=== PATIENT | male | born 1970 | race Caucasian/White ===

== ENCOUNTER 2016-10-19 23:28 | Emergency (ER) | payer BC ==
[2016-10-20] MEDS ORDERED: Clotrimazole 1% CREAM* 30 GM TOPICAL ONE (00:04)
--- NOTE | 2016-10-20 00:08 | ED ---
Skin Complaint - HPI Summary HPI Summary: 46M presents with rash on waist that spread to legs starting on Tuesday. He states exercising a lot outside when rash started. He developed a red itchy rash in lower abdominal/waist area and into right thigh. He tried OTC caladryl without any relief. He denies any fever. He states the area has a burning sensation to it. He denies any new products or contact with anything new. 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 Infectious Disease History: No Infectious Disease History: Denies: Traveled Outside the [place] in Last 30 Days - Family History Known Family History: Positive: Cardiac Disease - Social History Alcohol Use: Weekly Alcohol Amount: 1-2beers a week Substance Use Type: Reports: None Smoking Status (MU): Never Smoked Tobacco Review of Systems Negative: Fever Negative: Chest Pain Negative: Shortness Of Breath Positive: Rash All Other Systems Reviewed And Are Negative: Yes Physical Exam Triage Information Reviewed: Yes Vital Signs On Initial Exam: Initial Vitals Temp Pulse Resp BP Pulse Ox 98 F 75 16 144/98 97 10/19/16 23:29 10/19/16 23:29 10/19/16 23:29 10/19/16 23:29 10/19/16 23:29 Vital Signs Reviewed: Yes Appearance: Positive: Well-Appearing Skin: Positive: Other - erythematous rash with scaling on lower abdomen along waist line and right thigh, blanching to touch Head/Face: Positive: Normal Head/Face Inspection Eyes: Positive: Normal, Conjunctiva Clear Respiratory/Lung Sounds: Positive: Clear to Auscultation, Breath Sounds Present Cardiovascular: Positive: Normal, RRR Diagnostics - Vital Signs Vital Signs Temp Pulse Resp BP Pulse Ox 10/19/16 23:50 98.7 F 69 16 140/89 97 10/19/16 23:29 98 F 75 16 144/98 97 - Laboratory Lab Statement: Any lab studies that have been ordered have been reviewed, and results considered in the medical decision making process. Course/Dx - Course Course Of Treatment: 46M presents with rash tuesday s/p running. denies contact with anything. rash is located along pants line. has since spread to thigh. area not warm to touch, erythema present with scaling. will treat as tinea. will use clomitrazole twice a day. told will take some time to get better. patient understands and agrees with plan - Differential Diagnoses - Skin Complaint Differential Diagnoses: Cellulitis, Contact Dermatitis, Tinea - Diagnoses Provider Diagnoses: Tinea corporis Discharge - Discharge Plan Condition: Good Disposition: HOME Patient Education Materials: Skin Yeast Infection (ED) Referrals: Audi IZQUIERDO,Didier Carlos [Primary Care Provider] - Additional Instructions: Apply cream to area twice a day until resolves Keep area dry Can apply bath powder to area Return to ED if develop fever or any new or worsening symptoms
[2016-10-20 01:12] VITALS: BP 125/74
== END 2016-10-20 01:13 | disposition home or self-care (01) ==
LOC: ED 23:28
DX: B35.4 Tinea corporis (principal); I10 Essential (primary) hypertension
CPT/HCPCS: 99282

== ENCOUNTER 2016-11-03 17:07 | Emergency (ER) | payer BC ==
[2016-11-03 17:41] VITALS: BP 132/85
[2016-11-03] MEDS ORDERED: Ibuprofen TAB* 800 MG PO ONE (18:26)
--- NOTE | 2016-11-03 18:33 | ED ---
Lower Extremity - HPI Summary HPI Summary: Pt here w/ Rt ankle pain, swelling and injury 2 x today. Earlier today, rolled his ankle while walking on uneven ground. He reports this as a mild injury which he "walked off". Later in the day, he went for his 2 mile run he does QOD and at the end of the run, rolled this same ankle much more severely. He is able to bear weight but is quite painful. Denies numbness, tingling, weakness. Reports he showered after his run before coming here. H/o B/L ankle injuries, including a "minor" fracture of his Rt ankle, requiring an aircast and crutches for a few weeks. Has not taken anything prior to arrival for pain/swelling. - History of Current Complaint Chief Complaint: EDExtremityLower Stated Complaint: RT ANKLE INJURY Time Seen by Provider: 11/03/16 18:16 Hx Obtained From: Patient Pain Intensity: 5 - Allergies/Home Medications Allergies/Adverse Reactions: Allergies Allergy/AdvReac Type Severity Reaction Status Date / Time No Known Allergies Allergy Verified 10/20/16 01:08 PMH/Surg Hx/FS Hx/Imm Hx Previously Healthy: Yes Endocrine/Hematology History: Denies: Hx Anticoagulant Therapy, Hx Blood Disorders, Hx Diabetes Cardiovascular History: Reports: Hx Hypertension - on meds recently Denies: Hx Pacemaker/ICD Respiratory History: Denies: Hx Asthma History: Denies: Hx Renal Disease Musculoskeletal History: Reports: Other Musculoskeletal History - B/L ankle sprains Sensory History: Denies: Hx Hearing Aid Psychiatric History: Denies: Hx Panic Disorder - Surgical History Surgery Procedure, Year, and Place: 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 Infectious Disease History: No Infectious Disease History: Denies: Traveled Outside the [place] in Last 30 Days - Family History Known Family History: Positive: Cardiac Disease - Social History Occupation: Employed Full-time - [employer] Lives: Alone Alcohol Use: Weekly Alcohol Amount: 1-2beers a week Hx Substance Use: No Substance Use Type: Reports: None Hx Tobacco Use: No Smoking Status (MU): Never Smoked Tobacco Review of Systems Constitutional: Negative Positive: no symptoms reported Musculoskeletal: Other - see HPI Skin: Negative Neurological: Negative Psychological: Normal All Other Systems Reviewed And Are Negative: Yes Physical Exam Triage Information Reviewed: Yes Vital Signs On Initial Exam: Initial Vitals Temp Pulse Resp BP Pulse Ox 98.4 F 96 20 132/85 99 11/03/16 17:39 11/03/16 17:39 11/03/16 17:39 11/03/16 17:39 11/03/16 17:39 Vital Signs Reviewed: Yes Appearance: Positive: Well-Appearing, No Pain Distress, Well-Nourished Skin: Positive: Warm, Dry - no open skin over affected area Head/Face: Positive: Normal Head/Face Inspection ENT: Positive: Hearing grossly normal Respiratory/Lung Sounds: Positive: Breath Sounds Present Cardiovascular: Positive: Normal, Pulses are Symmetrical in both Upper and Lower Extremities. Negative: Leg Edema Left, Leg Edema Right Musculoskeletal: Positive: Strength/ROM Intact - pain w/ dorsiflexion and eversion of RT ankle - swelling over dorsal foot, just distal to lateral malleolus and proximal to base of 5th MT - 5th MT and all other MT's are NTTP; malleoli are NTTP Neurological: Positive: Normal, Sensory/Motor Intact, Alert, Oriented to Person Place, Time Psychiatric: Positive: Normal Diagnostics - Vital Signs Vital Signs Temp Pulse Resp BP Pulse Ox 11/03/16 17:41 98.4 F 96 20 132/85 97 11/03/16 17:39 98.4 F 96 20 132/85 99 - Laboratory Lab Statement: Any lab studies that have been ordered have been reviewed, and results considered in the medical decision making process. Lower Extremity Course/Dx - Diagnoses Provider Diagnoses: Right ankle sprain Discharge - Discharge Plan Condition: Stable Disposition: HOME Patient Education Materials: Ankle Sprain (ED), Crutch Instructions (ED), Ankle Stirrup Splint (ED) Forms: *Work Release Referrals: Audi IZQUIERDO,Didier Carlos [Primary Care Provider] - Additional Instructions: Rest, ice, elevate, wrap with SANTI to reduce swelling Use crutches to avoid weight bearing until cleared by PCP You may alternate ibuprofen 600mg every 6 hours with acetaminophen 650mg every 6 hours as needed for swelling and pain *If pain and swelling persist, follow-up with orthopedics.
--- NOTE | 2016-11-03 19:22 | RAD ---
Indication: RIGHT ankle pain and swelling laterally following twisting injury. Comparison: No relevant prior exams available on the [facility] for comparison. Technique: AP, mortise, and lateral views RIGHT ankle. Report: Soft tissue swelling most prominent over the lateral malleolus. Negative for fracture or malalignment. Suggestion of talocrural joint effusion. Mild talocrural joint osteophytosis. Small Achilles tendon insertion and plantar fascia origin bone spurs. IMPRESSION: Soft tissue swelling most prominent over the lateral malleolus and talocrural joint effusion without fracture or malalignment.
== END 2016-11-03 19:52 | disposition home or self-care (01) ==
LOC: ED 17:07
DX: S93.401A Sprain of unspecified ligament of right ankle, initial encounter (principal); M25.571 Pain in right ankle and joints of right foot; X50.9XXA Other and unspecified overexertion or strenuous movements or postures, initial encounter; Y93.9 Activity, unspecified; Y92.9 Unspecified place or not applicable
CPT/HCPCS: 99282; A9270-GY

== ENCOUNTER → 2016-11-11 08:44 | Emergency (ER) | payer BC ==
[~2016-11-11 08:44] MED LIST: Naproxen TAB* 250 MG PO ONE; Tetan/Diph/Pertus SYR(Tdap)* 0.5 ML SYR(BOOSTRIX) use SYR IM ONE
[2016-11-11 09:24] VITALS: BP 132/91
--- NOTE | 2016-11-11 11:56 | ED ---
Laceration/Wound HPI - History of Current Complaint Stated Complaint: RT FOOT LAC Time Seen by Provider: 11/11/16 09:29 Pain Intensity: 2 - Allergy/Home Medications Allergies/Adverse Reactions: Allergies Allergy/AdvReac Type Severity Reaction Status Date / Time No Known Allergies Allergy Verified 10/20/16 01:08 PMH/Surg Hx/FS Hx/Imm Hx Endocrine/Hematology History: Denies: Hx Anticoagulant Therapy, Hx Blood Disorders, Hx Diabetes Cardiovascular History: Reports: Hx Hypertension - on meds recently Denies: Hx Pacemaker/ICD Respiratory History: Denies: Hx Asthma History: Denies: Hx Renal Disease Musculoskeletal History: Reports: Other Musculoskeletal History - B/L ankle sprains Sensory History: Denies: Hx Hearing Aid Psychiatric History: Denies: Hx Panic Disorder - Surgical History Surgery Procedure, Year, and Place: 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 - Immunization History Date of Tetanus Vaccine: 2008 Infectious Disease History: Denies: Traveled Outside the [place] in Last 30 Days - Family History Known Family History: Positive: Cardiac Disease - Social History Alcohol Use: Weekly Alcohol Amount: 1-2beers a week Hx Substance Use: No Substance Use Type: Reports: None Hx Tobacco Use: No Smoking Status (MU): Never Smoked Tobacco Physical Exam Vital Signs On Initial Exam: Initial Vitals Temp Pulse Resp BP Pulse Ox 97.8 F 88 17 132/91 100 11/11/16 09:20 11/11/16 09:20 11/11/16 09:20 11/11/16 09:20 11/11/16 09:20 Diagnostics - Vital Signs Vital Signs Temp Pulse Resp BP Pulse Ox 11/11/16 09:37 97.8 F 88 16 132/91 98 11/11/16 09:20 97.8 F 88 17 132/91 100 - Laboratory Lab Statement: Any lab studies that have been ordered have been reviewed, and results considered in the medical decision making process. Laceration Repair Course/Dx - Differential Dx Differental Diagnoses: Abrasion, Avulsion, Foreign Body, Laceration, Tendon Laceration - Clinical Impression Provider Diagnoses: Laceration Discharge - Discharge Plan Condition: Stable Disposition: HOME Patient Education Materials: Laceration (ED), Care For Your Stitches (ED) Additional Instructions: Keep stitches clean and dry for 24-48 hours. Keep covered and apply triple antibiotic as desired. Watch for signs of infection, if develop seek medical attention promptly. Have stitches removed in the next 7 days. Follow up with PCP.
== END | disposition home or self-care (01) ==
LOC: ED 08:44
DX: S91.311A Laceration without foreign body, right foot, initial encounter (principal); X58.XXXA Exposure to other specified factors, initial encounter; Y93.9 Activity, unspecified; Y92.9 Unspecified place or not applicable
CPT/HCPCS: 90471; 90715; 99281; A9270-GY

== ENCOUNTER 2017-06-18 15:08 | Emergency (ER) | payer BC ==
[2017-06-18 18:44] VITALS: BP 133/94
--- NOTE | 2017-06-18 20:13 | UC ---
FLU HPI - HPI Summary HPI Summary: chills, body aches cough and sore throat began 1 day prior to visit-was recently exposed to some one with the flu - History of Current Complaint Chief Complaint: UCGeneralIllness Stated Complaint: SORE THROAT Time Seen by Provider: 06/18/17 20:05 Hx Obtained From: Patient Onset/Duration: Sudden Onset, Lasting Days - 1 Severity Currently: Mild Severity Initially: Mild Pain Intensity: 2 Pain Scale Used: 0-10 Numeric Associated Signs & Symptoms: Positive: Fever, Myalgia, Cough, Sore Throat, Nasal Congestion, Headache Related Hx: Possible Flu/Infectious Exposure - Allergy/Home Medications Allergies/Adverse Reactions: Allergies Allergy/AdvReac Type Severity Reaction Status Date / Time No Known Allergies Allergy Verified 06/18/17 18:36 Home Medications: Home Medications Ibuprofen TAB* [Advil TAB*] 200 mg PO Q6H PRN 06/18/17 [History Confirmed ] Ibuprofen/Diphenhydramine Cit [Advil Pm Caplet] 1 each PO BEDTIME 06/18/17 [ History Confirmed 06/18/17] PMH/Surg Hx/FS Hx/Imm Hx Previously Healthy: Yes Other History Of: Negative For: Anticoagulant Therapy - Surgical History Surgical History: Yes Surgery Procedure, Year, and Place: 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, surgery - Family History Known Family History: Positive: Cardiac Disease - Social History Occupation: Employed Full-time Lives: With Family Alcohol Use: Occasionally Alcohol Amount: 1-2beers a week Substance Use Type: None Smoking Status (MU): Never Smoked Tobacco Review of Systems Constitutional: Fever, Chills, Fatigue Skin: Negative Eyes: Negative ENT: Sore Throat, Ear Ache, Nasal Discharge, Sinus Congestion Respiratory: Cough Cardiovascular: Negative Gastrointestinal: Negative Genitourinary: Negative Motor: Negative Neurovascular: Negative Musculoskeletal: Arthralgia, Myalgia Neurological: Headache Psychological: Negative Is Patient Immunocompromised?: No All Other Systems Reviewed And Are Negative: Yes Physical Exam Triage Information Reviewed: Yes Appearance: Well-Nourished, Ill-Appearing, Pain Distress Vital Signs: Initial Vital Signs Temp 99 F 06/18/17 18:38 Pulse 93 06/18/17 18:38 Resp 18 06/18/17 18:38 BP 133/94 06/18/17 18:38 Pulse Ox 99 06/18/17 18:38 Vital Signs Reviewed: Yes Eye Exam: Normal Eyes: Positive: Conjunctiva Clear ENT Exam: Normal ENT: Positive: Normal ENT inspection, Hearing grossly normal, Pharynx normal, Nasal congestion, TMs normal, Uvula midline. Negative: Tonsillar swelling, Tonsillar exudate, Trismus, Muffled voice, Hoarse voice, Dental tenderness, Sinus tenderness Dental Exam: Normal Neck exam: Normal Neck: Positive: Supple, Nontender, No Lymphadenopathy Respiratory Exam: Normal Respiratory: Positive: Chest non-tender, Lungs clear, Normal breath sounds, No respiratory distress, No accessory muscle use Cardiovascular Exam: Normal Cardiovascular: Positive: RRR, No Murmur, Pulses Normal, Brisk Capillary Refill Musculoskeletal Exam: Normal Musculoskeletal: Positive: Strength Intact, ROM Intact, No Edema Neurological Exam: Normal Neurological: Positive: Alert, Muscle Tone Normal Psychological Exam: Normal Skin Exam: Normal Diagnostics - Laboratory Diagnostic Studies Completed/Ordered: influenza B (+) Flu Course/Dx - Course Course Of Treatment: ibuprofen, tylenol, increase fluids, tamiflu rest follow with pcp prn - Differential Dx/Diagnosis Provider Diagnoses: Influenza B Discharge - Discharge Plan Condition: Stable Disposition: HOME Prescriptions: Oseltamivir CAP* [Tamiflu CAP*] 75 mg PO BID #[id number] Patient Education Materials: Influenza (ED) Referrals: Audi IZQUIERDO,Didier Carlos [Primary Care Provider] - If Needed
[2017-06-18] MEDS ORDERED: Oseltamivir CAP* 75 MG CAP PO ONE (20:53)
== END 2017-06-18 21:10 | disposition home or self-care (01) ==
LOC: UCEAST 15:08
DX: J10.1 Influenza due to other identified influenza virus with other respiratory manifestations (principal)
CPT/HCPCS: 87502; 99212; A9270-GY; G0463